=== PATIENT | female | born 1935 | race Caucasian/White ===

== ENCOUNTER → 2019-11-09 | Outpatient (REF) | payer MEDICARE, OTHER ==
[2019-11-09 20:54] LABS: MAU/CREAT RATIO 166.2 MCG/MG (0.0-30.0)
== END ==
LOC: M LAB REF 15:42
PROVIDERS: ATTEND Internal Medicine Endocrinology, Diabetes & Metabolism
DX: E10.649 Type 1 diabetes mellitus with hypoglycemia without coma (principal)